=== PATIENT | female | born 1965 | race American Indian/Alaskan Native ===

== ENCOUNTER 2017-07-01 10:07 | Outpatient (CLI) | payer BC ==
--- NOTE | 2017-07-01 11:42 | Mammography Report ---
Bilateral digital screening mammogram with CAD. Comparison is made to previous study on August 25, 2013. Findings: The breasts are heterogeneously dense. In the right breast at the 11:30 position, there is an ill-defined parenchymal asymmetry. There is no architectural distortion, and no suspicious calcifications are seen. Impression: Right parenchymal asymmetry. BI-RADS code: 0. Recommendation: Spot compression imaging and ultrasound.
== END 2017-07-01 10:08 | disposition home or self-care (01) ==
LOC: SPVWC 10:07
PROVIDERS: ATTEND Family Medicine
DX: Z12.31 Encounter for screening mammogram for malignant neoplasm of breast (principal)
CPT/HCPCS: 77067; G0202

== ENCOUNTER 2017-07-26 09:45 | Outpatient (CLI) | payer BC ==
--- NOTE | 2017-07-26 10:56 | Mammography Report ---
RIGHT DIGITAL DIAGNOSTIC MAMMOGRAM and RIGHT BREAST ULTRASOUND: 07/26/17 09:45:00 CLINICAL: Recalled for asymmetry. COMPARISON:07/01/17 screening FINDINGS: Lateralmedial and spot compression MLO and CC views were performed. Near complete effacement of asymmetry on the CC view and complete effacement on the MLO view. The lateral view is negative. Ultrasound of the upper right breast was performed and demonstrated no mass or shadowing to correlate with the mammographic asymmetry. An oval anechoic cyst at 1 o'clock 5 cm from the nipple measures 9 x 7 x 3 mm. A benign cyst with a few since the patient's at 10 o'clock 7 cm from the nipple measures 5 x 7 x 2 mm. A benign intraparenchymal lymph node at 10 o'clock 7 cm from the nipple measures 5 x 2 x 2 mm. IMPRESSION: Small benign cysts and a benign intraparenchymal lymph node of the right breast. No suspicious finding. BI-RADS CATEGORY: 2 - - Benign RECOMMENDATION: Routine mammographic screening in one year. ACR BI-RADS MAMMOGRAPHIC CODES: 0 = Needs additional imaging evaluation; 1 = Negative; 2 = Benign; 3 = Probably benign; 4 = Suspicious; 5 = Malignant; 6 = Known biopsy-proven malignancy COMMENT: 1. Dense breast tissue, i.e., adenosis, fibrocystic changes, etc., may obscure an underlying neoplasm. 2. Approximately 10% of cancers are not detected with mammography. 3. A negative mammography report should not delay biopsy if a clinically suspicious mass is present. COMMENT: Patient follow-up letters are generated via our [employer] application.
== END 2017-07-26 09:46 | disposition home or self-care (01) ==
LOC: SPVWC 09:45
PROVIDERS: ATTEND Family Medicine
DX: N60.01 Solitary cyst of right breast (principal)
CPT/HCPCS: 76642; G0206

== ENCOUNTER 2018-11-02 08:21 | Outpatient (CLI) | payer BC ==
--- NOTE | 2018-11-02 13:16 | Ultrasound Report ---
TRANSABDOMINAL AND TRANSVAGINAL PELVIC ULTRASOUND: 11/02/18 08:21:00 CLINICAL: Postmenopausal pain. FINDINGS: Transabdominal and transvaginal pelvic ultrasound demonstrated a uterus measuring 8.3 x 2.8 x 4.2 cm. A heterogeneous myometrial echo pattern but no uterine fibroids or masses identified. The endometrium is normal and measures 3 mm AP thickness. Normal small ovaries. The right ovary measures 1.8 x 1.6 x 1.8cm. The left ovary measures 2.5 x 2.2 x 2.2cm. No adnexal mass. No free fluid. Normal urinary bladder. IMPRESSION: Normal uterus and ovaries.
== END 2018-11-02 08:22 | disposition home or self-care (01) ==
LOC: SPVWC 08:21
PROVIDERS: ATTEND Obstetrics & Gynecology
DX: R10.2 Pelvic and perineal pain (principal); Z78.0 Asymptomatic menopausal state
CPT/HCPCS: 76830; 76856

== ENCOUNTER 2020-07-29 14:18 | Outpatient (CLI) | payer BC ==
--- NOTE | 2020-07-31 15:17 | Mammography Report ---
DIGITAL SCREENING MAMMOGRAM WITH CAD, 07/31/2020 CLINICAL INFORMATION / INDICATION: Routine screening mammography. TECHNIQUE: Digital bilateral 2D mammography was obtained in the craniocaudal and mediolateral obliqu e projections. This examination was interpreted with the benefit of Computer-Aided Detection analysis . COMPARISON: 08/25/2013 FINDINGS: Breast Density: There are scattered areas of fibroglandular density. No dominant mass, suspicious calcifications, or architectural distortion in either breast. IMPRESSION: No mammographic evidence of malignancy. Follow up recommendation: Routine yearly BI-RADS Category 1: Negative. A "normal" or negative report should not discourage follow up or biopsy of a clinically significant f inding. A written summary of these findings will be mailed to the patient. The patient will be entered into a mammography reporting system which will generate a reminder letter for the patient's next appointmen t at the appropriate interval. The [employer] recommends yearly mammograms starting at age 40 and continuing as l billy as a woman is in good health. Breast MRI is recommended for women with an approximate 20-25% or greater lifetime risk of breast cancer, including women with a strong family history of breast or ova carlene cancer or who have been treated for Hodgkin's disease. Signer Name: Tim Johns MD Signed: 07/31/2020 3:13 PM Workstation Name: [id number]
== END 2020-07-29 14:19 | disposition home or self-care (01) ==
LOC: SPVWC 14:18
PROVIDERS: ATTEND Family Medicine
DX: Z12.31 Encounter for screening mammogram for malignant neoplasm of breast (principal)
CPT/HCPCS: 77067

== ENCOUNTER 2021-11-12 13:44 | Outpatient (CLI) | payer OTHER ==
--- NOTE | 2021-11-13 16:55 | Mammography Report ---
DIGITAL SCREENING MAMMOGRAM WITH CAD, 11/12/2021 CLINICAL INFORMATION / INDICATION: Routine screening TECHNIQUE: Digital bilateral 2D mammography was obtained in the craniocaudal and mediolateral obliqu e projections. This examination was interpreted with the benefit of Computer-Aided Detection analysis . COMPARISON: 07/29/2020 FINDINGS: Breast Density: There are scattered areas of fibroglandular density. No dominant mass, suspicious calcifications, or architectural distortion in either breast. IMPRESSION: No mammographic evidence of malignancy. Follow up recommendation: Clinical follow-up of patient's complaint of "lumpy breast "is suggested. BI-RADS Category 1: NEGATIVE A "normal" or negative report should not discourage follow up or biopsy of a clinically significant f inding. A written summary of these findings will be mailed to the patient. The patient will be entered into a mammography reporting system which will generate a reminder letter for the patient's next appointmen t at the appropriate interval. The [employer] recommends yearly mammograms starting at age 40 and continuing as l billy as a woman is in good health. Breast MRI is recommended for women with an approximate 20-25% or greater lifetime risk of breast cancer, including women with a strong family history of breast or ova carlene cancer or who have been treated for Hodgkin's disease. Signer Name: Tim Johns MD Signed: 11/13/2021 4:50 PM Workstation Name: [id number]
== END 2021-11-12 13:45 | disposition home or self-care (01) ==
LOC: SPVWC 13:44
PROVIDERS: ATTEND Family Medicine
DX: Z12.31 Encounter for screening mammogram for malignant neoplasm of breast (principal)
CPT/HCPCS: 77067